=== PATIENT | male | born 1930 | race Hispanic/Latino ===

== ENCOUNTER 2017-03-06 23:37 | Emergency (ER) | payer MEDICARE ==
[2017-03-06 23:37] VITALS: BMI 26.1
[2017-03-06 23:56] VITALS: TEMP 97.8
--- NOTE | 2017-03-07 00:02 | ED PDOC ---
Arrival/HPI - General Time Seen by Provider: 03/06/17 23:55 Historian: Patient - History of Present Illness Narrative History of Present Illness (Text): 03/06/17 23:58 Hernán Levy is an 86 year old male, whose past medical history includes BPH and TIA, who presents to the ED complaining of urinary retention tonight. Patient states his Thakkar catheter is clogged and he has been unable to pass his urine. Patient denies any fever, chills, abdominal pain, nausea, vomiting, diarrhea, back pain, or any other complaints. Urologist: Dr. Baez Symptom Onset: Gradual Symptom Course: Unchanged Activities at Onset: Light Context: Home Past Medical History - Provider Review Nursing Documentation Reviewed: Yes - Infectious Disease Hx of Infectious Diseases: None - Cardiac Hx Cardiac Disorders: No - Pulmonary Hx Respiratory Disorders: No - Neurological HX Cerebrovascular Accident: Yes - HEENT Hx HEENT Disorder: No - Renal Hx Renal Disorder: No - Endocrine/Metabolic Hx Endocrine Disorders: No - Hematological/Oncological Hx Cancer: Yes (PROSTATE) - Integumentary Hx Dermatological Disorder: No - Musculoskeletal/Rheumatological Hx Falls: Yes - Gastrointestinal Hx Gastrointestinal Disorders: No - Genitourinary/Gynecological Hx Prostate Problems: Yes - Psychiatric Hx Psychophysiologic Disorder: No Hx Substance Use: No - Surgical History Other/Comment: Hernia - Anesthesia Hx Anesthesia: Yes Hx Anesthesia Reactions: No Hx Malignant Hyperthermia: No Family/Social History - Physician Review Nursing Documentation Reviewed: Yes Family/Social History: Unknown Family HX Smoking Status: Never Smoked Hx Alcohol Use: Yes (a glass of wine occasionally) Hx Substance Use: No Allergies/Home Meds Allergies/Adverse Reactions: Allergies No Known Allergies Allergy (Verified 01/27/16 11:21) Home Medications: Home Meds Medication Instructions Recorded Confirmed Finasteride [Proscar] 5 mg PO DAILY 08/14/15 08/14/15 Review of Systems - Physician Review All systems were reviewed & negative as marked: Yes - Review of Systems Constitutional: Normal. absent: Fevers Eyes: Normal ENT: Normal Respiratory: Normal. absent: SOB, Cough Cardiovascular: Normal. absent: Chest Pain Gastrointestinal: Normal. absent: Abdominal Pain, Diarrhea, Nausea, Vomiting Genitourinary Male: Urinary Output Changes (+urinary retention) Musculoskeletal: Normal. absent: Back Pain, Neck Pain Skin: Normal. absent: Rash Neurological: Normal. absent: Headache, Dizziness Endocrine: Normal Hemo/Lymphatic: Normal Psychiatric: Normal Physical Exam Vital Signs Reviewed: Yes Vital Signs Temp Pulse Resp BP Pulse Ox 03/06/17 23:55 97.8 F 66 20 170/74 H 100 Temperature: Afebrile Blood Pressure: Hypertensive Pulse: Regular Respiratory Rate: Normal Appearance: Positive for: Well-Appearing, Non-Toxic, Comfortable Pain Distress: None Mental Status: Positive for: Alert and Oriented X 3 - Systems Exam Head: Present: Atraumatic, Normocephalic Pupils: Present: PERRL Extroacular Muscles: Present: EOMI Conjunctiva: Present: Normal Mouth: Present: Moist Mucous Membranes Neck: Present: Normal Range of Motion Respiratory/Chest: Present: Clear to Auscultation, Good Air Exchange. No: Respiratory Distress, Accessory Muscle Use Cardiovascular: Present: Regular Rate and Rhythm, Normal S1, S2. No: Murmurs Abdomen: Present: Distention (Suprapubic distention), Normal Bowel Sounds. No: Tenderness, Peritoneal Signs Back: Present: Normal Inspection Upper Extremity: Present: Normal Inspection. No: Cyanosis, Edema Lower Extremity: Present: Normal Inspection. No: Edema Neurological: Present: GCS=15, CN II-XII Intact, Speech Normal Skin: Present: Warm, Dry, Normal Color. No: Rashes Psychiatric: Present: Alert, Oriented x 3, Normal Insight, Normal Concentration Medical Decision Making ED Course and Treatment: 03/06/17 23:58 Impression: 86 year old male complaining of urinary retention. Differential Diagnosis included but are not limited to: BPH vs. obstructed thakkar catheter Plan: -- Thakkar catheter -- Reassess and disposition Progress Notes: 03/07/17 01:46 Thakkar changed by RN and draining urine without difficulty. Pt tolerated procedure well and states he feels much better. Discussed plan with patient who expresses understanding. All questions answered and there is agreement with the plan to discharge home with instructions. Patient stable for discharge. Instructed to follow-up with his urologist. Return if symptoms persist or worsen. - Scribe Statement The provider has reviewed the documentation as recorded by the Scribe Tamiko Olvera All medical record entries made by the Scribe were at my direction and personally dictated by me. I have reviewed the chart and agree that the record accurately reflects my personal performance of the history, physical exam, medical decision making, and the department course for this patient. I have also personally directed, reviewed, and agree with the discharge instructions and disposition. Disposition/Present on Arrival - Present on Arrival Any Indicators Present on Arrival: No History of DVT/PE: No History of Uncontrolled Diabetes: No Urinary Catheter: No History Surgical Site Infection Following: None - Disposition Have Diagnosis and Disposition been Completed?: Yes Diagnosis: Obstructed Thakkar catheter, Encounter for Thakkar catheter replacement Disposition: HOME/ ROUTINE Disposition Time: 01:42 Patient Plan: Discharge Patient Problems: Current Active Problems Problem Status Onset Encounter for Thakkar catheter replacement Acute Obstructed Thakkar catheter Acute Condition: STABLE Discharge Instructions (ExitCare): Thakkar Catheter Placement and Care (ED) Additional Instructions: Follow up with your urologist this week Referrals: Adore Cote, [Primary Care Provider] - Follow up with primary
[2017-03-07 02:01] VITALS: BP 146/96; PULSE 60; RESP 16; O2SAT 97
[2017-03-07] MEDS ORDERED: TraMADol/Apap 37.5/325 mg Tab PO STA (03:18)
== END 2017-03-07 03:49 | disposition home or self-care (01) ==
LOC: ED 23:37
DX: T83.098A Other mechanical complication of other urinary catheter, initial encounter (principal); Y84.8 Other medical procedures as the cause of abnormal reaction of the patient, or of later complication, without mention of misadventure at the time of the procedure; Y92.89 Other specified places as the place of occurrence of the external cause

== ENCOUNTER 2018-03-07 20:06 | Inpatient (IN) | payer MEDICARE ==
[2018-03-07 20:37] VITALS: BMI 25.8
[2018-03-07 21:04] LABS: BASO # 0.03 K/mm3 (0.0-2.0); BASO % 0.4 % (0.0-3.0); EOS # 0.2 (0.0-0.7); EOS % 2.5 % (1.5-5.0); GRAN # 4.6 (1.4-6.5); GRAN % 63.6 % (50.0-68.0); HEMOGLOBIN 13.4 g/dL (14.0-18.0); LYMPH # 1.5 (1.2-3.4); LYMPH % 21.1 % (22.0-35.0); MEAN CELL VOLUME 90.2 fl (80.0-105.0); MEAN CORPUSCULAR HEMOGLOBIN 30.6 pg (25.0-35.0); MEAN CORPUSCULAR HGB CONC 33.9 g/dl (31.0-37.0); MEAN PLATELET VOLUME 10.2 fl (7.0-11.0); MONO # 0.9 (0.1-0.6); MONO % 12.4 % (1.0-6.0); RBC 4.38 10^6/uL (3.5-6.1); RED CELL DISTRIBUTION WIDTH 13.2 % (11.5-14.5); WHITE BLOOD COUNT 7.2 10^3/ul (4.5-11.0)
[2018-03-07 21:11] LABS: INR 1.01; PARTIAL THROMBOPLASTIN TIME 26.1 Seconds (25.1-36.5); PROTHROMBIN TIME 11.5 SECONDS (9.4-12.5)
[2018-03-07 21:12] LABS: ALB/GLOB RATIO 1.4 (1.1-1.8); ALBUMIN 3.7 g/dL (3.0-4.8); ALT/SGPT 26 U/L (7-56); AST/SGOT 25 U/L (17-59); BLOOD UREA NITROGEN 24 mg/dL (7-21); GFR NON-AFRICAN AMERICAN > 60
[2018-03-07 21:23] LABS: TROPONIN I < 0.01 ng/mL
--- NOTE | 2018-03-07 23:45 | ED PDOC ---
Arrival/HPI - General Chief Complaint: Syncope Time Seen by Provider: 03/07/18 20:07 Historian: Patient - History of Present Illness Narrative History of Present Illness (Text): 03/07/18 20:07 87 year old male, whose past medical history includes enlarged prostate and mini stroke, presents to the emergency department for evaluation, status post syncopal episode. Patient denies any headache, chest pain, shortness of breath , abdominal pain, or any other complaints. Time/Duration: Prior to Arrival Past Medical History - Provider Review Nursing Documentation Reviewed: Yes - Infectious Disease Hx of Infectious Diseases: None - Cardiac Hx Cardiac Disorders: Yes - Pulmonary Hx Respiratory Disorders: No - Neurological Hx Neurological Disorder: Yes HX Cerebrovascular Accident: Yes - HEENT Hx HEENT Disorder: No - Renal Hx Renal Disorder: No - Endocrine/Metabolic Hx Endocrine Disorders: No - Hematological/Oncological Hx Blood Disorders: Yes Hx Cancer: Yes (PROSTATE) - Integumentary Hx Dermatological Disorder: No - Musculoskeletal/Rheumatological Hx Musculoskeletal Disorders: Yes Hx Falls: Yes - Gastrointestinal Hx Gastrointestinal Disorders: No - Genitourinary/Gynecological Hx Genitourinary Disorders: Yes (thakkar to sgd retention) Hx Hematuria: Yes Hx Prostate Problems: Yes Other/Comment: BLADDER STONE - Psychiatric Hx Psychophysiologic Disorder: No Hx Substance Use: No - Anesthesia Hx Anesthesia: Yes Hx Anesthesia Reactions: No Hx Malignant Hyperthermia: No Family/Social History - Physician Review Nursing Documentation Reviewed: Yes Family/Social History: No Known Family HX Smoking Status: Former Smoker Hx Alcohol Use: No Hx Substance Use: No Allergies/Home Meds Allergies/Adverse Reactions: Allergies No Known Allergies Allergy (Verified 01/27/16 11:21) Home Medications: Home Meds Medication Instructions Recorded Confirmed Tamsulosin [Flomax] 0.4 mg PO DAILY 03/10/17 03/10/17 Review of Systems - Physician Review All systems were reviewed & negative as marked: Yes - Review of Systems Constitutional: Normal Eyes: Normal ENT: Normal Respiratory: Normal. absent: SOB Cardiovascular: Normal. absent: Chest Pain Gastrointestinal: Normal. absent: Abdominal Pain Genitourinary Male: Normal Musculoskeletal: Normal Skin: Normal Neurological: Normal. absent: Headache Endocrine: Normal Hemo/Lymphatic: Normal Psychiatric: Normal Physical Exam Vital Signs Reviewed: Yes Vital Signs Temp Pulse Resp BP Pulse Ox 03/07/18 23:47 98.4 F 55 L 18 135/70 97 09/11/18 22:54 54 L 18 139/70 98 03/07/18 20:31 98.4 F 56 L 18 125/65 96 Temperature: Afebrile Blood Pressure: Normal Pulse: Regular Respiratory Rate: Normal Appearance: Positive for: Well-Appearing, Non-Toxic, Comfortable Pain Distress: None Mental Status: Positive for: Alert and Oriented X 3 - Systems Exam Head: Present: Atraumatic, Normocephalic Pupils: Present: PERRL Extroacular Muscles: Present: EOMI Conjunctiva: Present: Normal Mouth: Present: Moist Mucous Membranes Neck: Present: Normal Range of Motion Respiratory/Chest: Present: Clear to Auscultation, Good Air Exchange. No: Respiratory Distress, Accessory Muscle Use Cardiovascular: Present: Regular Rate and Rhythm, Normal S1, S2. No: Murmurs Abdomen: No: Tenderness, Distention, Peritoneal Signs Back: Present: Normal Inspection Upper Extremity: Present: Normal Inspection. No: Cyanosis, Edema Lower Extremity: Present: Normal Inspection. No: Edema Neurological: Present: GCS=15, CN II-XII Intact, Speech Normal Skin: Present: Warm, Dry, Normal Color. No: Rashes Psychiatric: Present: Alert, Oriented x 3, Normal Insight, Normal Concentration Medical Decision Making ED Course and Treatment: 03/07/18 20:15 Impression: 87 year old male presents to the emergency department for evaluation status post syncopal episode. Plan: -- EKG -- Chest X-ray -- CT Head -- Urinalysis -- Reassess and disposition Prior Visits: Notes and results from previous visits were reviewed. pt request dr ji service accepts case Progress Notes: 03/08/18 00:40 - Lab Interpretations Lab Results: 03/07/18 20:57 03/07/18 20:57 Lab Results 03/07/18 20:57: Sodium 139, Potassium 4.4, Chloride 103, Carbon Dioxide 29, Anion Gap 11, BUN 24 H, Creatinine 1.1, Est GFR ( Amer) > 60, Est GFR ( Non-Af Amer) > 60, Random Glucose 117 H, Calcium 9.0, Total Bilirubin 0.3, AST 25, ALT 26, Alkaline Phosphatase 43, Troponin I < 0.01, Total Protein 6.5, Albumin 3.7, Globulin 2.7, Albumin/Globulin Ratio 1.4 03/07/18 20:57: PT 11.5, INR 1.01, APTT 26.1 03/07/18 20:57: WBC 7.2, RBC 4.38, Hgb 13.4 L, Hct 39.5 L, MCV 90.2, MCH 30.6, MCHC 33.9, RDW 13.2, Plt Count 212, MPV 10.2, Gran % 63.6, Lymph % (Auto) 21.1 L , Bell % (Auto) 12.4 H, Eos % (Auto) 2.5, Baso % (Auto) 0.4, Gran # 4.60, Lymph # (Auto) 1.5, Bell # (Auto) 0.9 H, Eos # (Auto) 0.2, Baso # (Auto) 0.03 - RAD Interpretation Radiology Orders: 03/07/18 20:35 HEAD W/O CONTRAST [CT] Stat 03/07/18 20:36 CHEST ONE VIEW [RAD] Stat - EKG Interpretation EKG Interpretation (Text): 03/08/18 00:20 nsr bradycardia rate 52 nssts changes - Medication Orders Current Medication Orders: Acetaminophen (Tylenol 325mg Tab) 650 mg PO Q4H PRN PRN Reason: Pain, Mild (1-3) Sodium Chloride (Sodium Chloride 0.9%) 1,000 mls @ 80 mls/hr IV .[id number] STA Stop: 03/08/18 12:32 - Scribe Statement The provider has reviewed the documentation as recorded by the Tiffani Dubois Provider Scribe Attestation: All medical record entries made by the Tiffani were at my direction and personally dictated by me. I have reviewed the chart and agree that the record accurately reflects my personal performance of the history, physical exam, medical decision making, and the department course for this patient. I have also personally directed, reviewed, and agree with the discharge instructions and disposition. Disposition/Present on Arrival - Present on Arrival Any Indicators Present on Arrival: No History of DVT/PE: Yes History of Uncontrolled Diabetes: Yes Urinary Catheter: Yes History of Decub. Ulcer: No History Surgical Site Infection Following: None - Disposition Have Diagnosis and Disposition been Completed?: Yes Diagnosis: Syncope Disposition: HOSPITALIZED Disposition Time: 22:00 Condition: FAIR
[2018-03-08] MEDS ORDERED: Sodium Chloride 0.9% 1,000 ML IV STA (00:03)
[2018-03-08 05:28] LABS: PH,URINE 7.5 (4.7-8.0); URINE BILIRUBIN NEGATIVE (NEGATIVE); URINE BLOOD NEGATIVE (NEGATIVE); URINE GLUCOSE (UA) NEGATIVE (NEGATIVE); URINE LEUKOCYTE ESTERASE TRACE Leu/uL (NEGATIVE); URINE PROTEIN NEGATIVE mg/dL (<30 mg/dL); URINE UROBILINOGEN 0.2 E.U./dL (<1 E.U./dL)
[2018-03-08 05:32] LABS: URINE APPEARANCE CLEAR (CLEAR); URINE COLOR YELLOW (YELLOW)
[2018-03-08 05:40] LABS: URINE BACTERIA OCC (NEG); URINE EPITHELIAL CELLS 0 - 2 /hpf (0-5); URINE RBC 0 - 2 /hpf (0-2)
--- NOTE | 2018-03-08 09:18 | CT ---
Date of service: 03/08/2018 PROCEDURE: CT HEAD WITHOUT CONTRAST. HISTORY: syncope COMPARISON: 08/14/2015 TECHNIQUE: Axial computed tomography images were obtained through the head/brain without intravenous contrast. Radiation dose: Total exam DLP = 779 mGy-cm. This CT exam was performed using one or more of the following dose reduction techniques: Automated exposure control, adjustment of the mA and/or kV according to patient size, and/or use of iterative reconstruction technique. FINDINGS: HEMORRHAGE: No intracranial hemorrhage. BRAIN: No mass effect or edema. There is a chronic appearing lacunar infarct in the right thalamus. Chronic microvascular changes are seen in the periventricular white matter. There are no acute findings VENTRICLES: Unremarkable. No hydrocephalus. CALVARIUM: Unremarkable. PARANASAL SINUSES: Unremarkable as visualized. No significant inflammatory changes. MASTOID AIR CELLS: Unremarkable as visualized. No inflammatory changes. OTHER FINDINGS: The report concurs with the preliminary [facility] report IMPRESSION: No acute findings
--- NOTE | 2018-03-08 10:44 | RAD ---
Date of service: 03/07/2018 PROCEDURE: CHEST RADIOGRAPH, 1 VIEW HISTORY: pain COMPARISON: 01/27/2016 FINDINGS: LUNGS: Clear. PLEURA: No pneumothorax or pleural fluid seen. CARDIOVASCULAR: Normal. OSSEOUS STRUCTURES: No significant abnormalities. VISUALIZED UPPER ABDOMEN: Normal. OTHER FINDINGS: None. IMPRESSION: No active disease.
--- NOTE | 2018-03-08 11:24 | CARD ---
APPROVED REPORT Date of service: 03/07/2018 EKG Measurement Heart [id number] [id number] <Conclusion> Sinus bradycardia Minimal voltage criteria for LVH, may be normal variant
--- NOTE | 2018-03-08 16:28 | US ---
PROCEDURE: Bilateral carotid artery duplex ultrasound HISTORY: Carotid stenosis syncope PHYSICIAN(S): Hernán Chun MD. TECHNIQUE: Duplex sonography and color-flow Doppler were used to evaluate the carotid bifurcations and limited segments of the vertebral arteries bilaterally. FINDINGS: There is mild smooth heterogeneous plaque noted at the carotid bifurcations bilaterally. The peak systolic velocity in the proximal right internal carotid artery is 60 cm/sec. This corresponds to a 20 to 39% proximal right ICA stenosis. Normal systolic velocities are noted in the proximal right external carotid artery. There is antegrade flow in the right vertebral artery. The peak systolic velocity in the proximal left internal carotid artery is 79 cm/sec. This corresponds to a 20 to 39% proximal left ICA stenosis. Normal systolic velocities are noted in the proximal left external carotid artery. There is antegrade flow in the left vertebral artery. IMPRESSION: 1. 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 2. Antegrade flow in both vertebral arteries.
--- NOTE | 2018-03-08 17:57 | CON ---
DATE: 03/08/2018 NEUROLOGY CONSULT CHIEF COMPLAINT: Syncope. HISTORY OF PRESENT ILLNESS: An 87-year-old man with past medical history of BPH, on Flomax; hypertension; and dyslipidemia; who presented after having a syncopal episode. The patient is unaware if he completely passed out or felt lightheaded with no spinning sensation of the room. Denied any focal paresthesias or weakness in the extremities. He had a carotid Doppler which the results are pending. CAT scan of the head showed no acute intracranial abnormality. Apparently, there is no focal weakness seen on neuro examination. The patient's primary care team has ordered MRI of the brain given his unknown syncopal event and otherwise, the sodium and potassium are unremarkable. He is following commands without any difficulty. PAST MEDICAL HISTORY: As above. ALLERGIES: NO KNOWN DRUG ALLERGIES. SOCIAL HISTORY: No illicit drug use, smoking, or EtOH abuse. REVIEW OF SYSTEMS: A 14-point review of systems is negative except as per the HPI. FAMILY HISTORY: Noncontributory. MEDICATIONS: Reviewed by nurse per reconciliation sheet. LABORATORY DATA: Sodium is 139, potassium 4.4, chloride of 103, carbon dioxide of 29. BUN of 24, creatinine 1.1. Random glucose of 117. PHYSICAL EXAMINATION: VITAL SIGNS: Temperature is 98.1, pulse rate of 50, blood pressure 160/85, respiratory rate of 18, and oxygen saturation of 98% via nasal cannula. GENERAL: The patient is sitting up in bed, in no acute distress. HEENT: Head is atraumatic and normocephalic. PERRLA. Extraocular muscles intact. NECK: Supple. No JVD. No adenopathy noted. LUNGS: Clear to auscultation. No adventitious sounds. HEART: S1 and S2. Normal rate and rhythm. No murmurs, rubs, or gallops. ABDOMEN: Soft, nontender, and nondistended. Bowel sounds are present. EXTREMITIES: No clubbing. No cyanosis. Peripheral pulses are 2+ felt bilaterally. NEUROLOGIC: The patient is alert and oriented to person, place, month, and year. Speech is fluent without any errors. Cranial nerves II through XII are intact. Motor exam: Moves all extremities equally. Toes are downgoing bilaterally. Sensory exam: Light touch, pinprick, proprioception, and vibration are intact. DTRs are 2+ throughout. Coordination of [id number] intact. No dysmetria noted. Gait is deferred for now. IMPRESSION AND PLAN: This is a syncopal event, most likely vasovagal versus bradycardic in nature since he has episodes of bradycardia, which the lowest I have seen is 50 of the heart rate. At this time, we will recommend; 1. Carotid Doppler. 2. He is undergoing an MRI of the brain to see any acute intracranial process causing syncopal event. 3. Orthostatic vital signs. 4. PT/OT eval and follow up with Cardiology. Thank you for this consultation. Carlo Mcginnis MD
--- NOTE | 2018-03-09 05:42 | CON ---
DATE: 03/08/2018 SERVICE: CARDIOLOGY REASON FOR CONSULTATION: Syncope, cardiac evaluation. BRIEF CLINICAL HISTORY: This is an 87-year-old male with a past medical history significant for BPH, history of TURP a year ago; being followed by Dr. Tran, history of a stress test a year ago. Admitted after a syncopal episode. Patient states that he was outside the home and talking to the neighbors, suddenly he feel that he going to pass out, neighbors asked what is happening, by that time the patient sit down on the staircase, but apparently he passed out and was brought here. Patient had no recollection what happened, but though he recalled that couple of years ago that the same thing happened and it looks like patient is urge to bowel movement and after that patient feels better. That whole thing happened last night also, the patient urge to bowel movement and after that patient feel comfortable. So, patient came to the emergency room. Denies any chest pain. Denies any shortness of breath, but recently feeling tiredness. PAST MEDICAL HISTORY: Significant for benign prostatic hypertrophy, status post TURP. SOCIAL HISTORY: Denies any history of smoking, but used to drink one glass of wine with the dinner. PAST SURGICAL HISTORY: Significant for hernia repair 22 years ago and history of possible TURP. According to patient, the roto-rooter in prostate was done a year ago, being followed by Dr. Tran and had a stress test prior to TURP for clearance in April. Used to follow with Dr. Tran and was told that everything is okay with the heart. CURRENT MEDICATIONS: Patient is taking Flomax 0.4 mg daily prescription item. Non-prescription item; used to take Ginkoba, multivitamin, and other herbal products. REVIEW OF SYSTEMS: As per HPI. PHYSICAL EXAMINATION: GENERAL: Height of the patient 5 feet 8 inches, weight of the patient 170 pounds, body mass index 28 kg/m2. VITAL SIGNS: Temperature afebrile, heart rate 55, blood pressure 160/85. HEENT: PERRLA. Extraocular muscles intact. NECK: Supple. No carotid bruit or thyromegaly. CHEST: Clear to auscultation. HEART: S1 and S2 regular. ABDOMEN: Soft. EXTREMITIES: Clubbing and cyanosis, negative. LABORATORY DATA: EKG shows sinus bradycardia, heart rate 52, LVA. Blood workup as follows: WBC 7.8, hemoglobin 13.1, hematocrit 39.5, platelet count 212. Chemistry shows sodium 139, potassium 4.4, chloride 103, carbon dioxide 29, anion gap of 11, BUN 24, creatinine 1.1. Troponin is 0.01. IMPRESSION: An 87-year-old male with a past medical history significant for benign prostatic hypertrophy, status post possible transurethral resection of the prostate, on Flomax and syncopal episode. Then, apparently he has 5-6 years ago similar with abdominal pain, rule out orthostatic hypotension, rule out arrhythmia, rule out structural heart disease. So far, no evidence of acute myocardial infarction. RECOMMENDATION: We will get orthostatic blood pressure. We will check echo to assess LV function. Get the lipid profile, TSH, hemoglobin A1c. We will get carotid duplex. Further recommendations depending on the hospital course. We will monitor the telemetry to rule out arrhythmia. Thank you, Dr. Gasca, for providing us the opportunity in taking care of Hernán Levy. Nilsa Arzola MD
[2018-03-09 06:31] LABS: BASO # 0.04 K/mm3 (0.0-2.0); BASO % 0.6 % (0.0-3.0); EOS # 0.3 (0.0-0.7); EOS % 4.2 % (1.5-5.0); GRAN # 3.69 (1.4-6.5); GRAN % 51.3 % (50.0-68.0); LYMPH # 2.3 (1.2-3.4); LYMPH % 31.9 % (22.0-35.0); MEAN CELL VOLUME 89.7 fl (80.0-105.0); MEAN CORPUSCULAR HGB CONC 34.6 g/dl (31.0-37.0); MEAN PLATELET VOLUME 10.3 fl (7.0-11.0); MONO # 0.9 (0.1-0.6); RBC 4.84 10^6/uL (3.5-6.1); RED CELL DISTRIBUTION WIDTH 13.2 % (11.5-14.5); WHITE BLOOD COUNT 7.2 10^3/ul (4.5-11.0)
[2018-03-09] MEDS ORDERED: Sodium Chloride 0.9% 1,000 ML IV SCH (06:45)
[2018-03-09 07:07] LABS: LDL CHOLESTEROL 125 mg/dL (0-129)
[2018-03-09 07:16] LABS: ALB/GLOB RATIO 1.3 (1.1-1.8); ALBUMIN 4.1 g/dL (3.0-4.8); ALT/SGPT 20 U/L (7-56); AST/SGOT 32 U/L (17-59); BLOOD UREA NITROGEN 21 mg/dL (7-21); CALCIUM 9.4 mg/dL (8.4-10.5); GFR NON-AFRICAN AMERICAN > 60; HDL CHOLESTEROL 44 mg/dL (29-60)
--- NOTE | 2018-03-09 08:01 | RAD ---
Date of service: 03/08/2018 PROCEDURE: Radiographs of the Left Ribs. HISTORY: Left rib pain, syncope COMPARISON: None available. TECHNIQUE: Frontal radiograph of the chest and multiple oblique radiographs of the left ribs were obtained. FINDINGS: LEFT RIBS: No fracture or focal lesion visualized. OTHER FINDINGS: None. IMPRESSION: Unremarkable radiographs of the left ribs. No left rib fracture.
--- NOTE | 2018-03-09 08:15 | CP.PCM.PN ---
Subjective - Date & Time of Evaluation Date of Evaluation: 03/09/18 Time of Evaluation: 06:45 - Subjective Subjective: Awake, alert, no distress, denies dizziness Reason for consultation and follow up: Cardiac evaluation of syncopal episode, history of BPH with TURP, orthostatic hypotension Seen and examined by me and Dr. Arzola Objective - Vital Signs/Intake and Output Vital Signs (last 24 hours): Temp Pulse Resp BP Pulse Ox 98.1 F 43 L 18 160/85 H 98 03/08/18 12:31 03/09/18 06:00 03/08/18 12:31 03/08/18 12:31 03/08/18 12:31 Intake and Output: 03/09/18 03/09/18 06:59 18:59 Intake Total 120 Output Total 1200 Balance -1080 - Medications Medications: Current Medications Acetaminophen (Tylenol 325mg Tab) 650 mg PO Q4H PRN PRN Reason: Pain, Mild (1-3) Famotidine (Pepcid) 40 mg PO HS [facility] Last Admin: 03/08/18 21:29 Dose: 40 mg Sodium Chloride (Sodium Chloride 0.9%) 1,000 mls @ 100 mls/hr IV .Q10H [facility] Tamsulosin HCl (Flomax) 0.4 mg PO DAILY [facility] Last Admin: 03/08/18 09:32 Dose: 0.4 mg - Labs Labs: 03/09/18 06:00 03/09/18 06:00 PT 11.5 SECONDS (9.4-12.5) 03/07/18 20:57 INR 1.01 03/07/18 20:57 APTT 26.1 Seconds (25.1-36.5) 03/07/18 20:57 - Constitutional Appears: No Acute Distress - Head Exam Head Exam: NORMOCEPHALIC - Eye Exam Eye Exam: Normal appearance - ENT Exam ENT Exam: Mucous Membranes Moist - Respiratory Exam Respiratory Exam: Clear to Ausculation Bilateral, NORMAL BREATHING PATTERN - Cardiovascular Exam Cardiovascular Exam: Bradycardia, +S1, +S2 - GI/Abdominal Exam GI & Abdominal Exam: Soft, Normal Bowel Sounds - Extremities Exam Extremities Exam: Normal Capillary Refill - Neurological Exam Neurological Exam: Alert, Awake, Oriented x3 - Psychiatric Exam Psychiatric exam: Normal Affect - Skin Skin Exam: Dry, Warm Assessment and Plan - Assessment and Plan (Free Text) Assessment: A 87 year old male who was brought to the ER due to syncopal episode. He claimed that he was talking to his neighbor and suddenly felt that he gonna passed out. He sat down on the staircase and passed out. No recollection of what happen after that. History of benign prostatic hypertrophy,post TURP, hernia repair. Positive for orthostatic hypotension. Will start IV fluids. Carotid dopplers unremarkable. Plan: Orthostatic hypotension Lying BP- 124/66 Sitting BP- 114/64 Standing BP - 87/57 IV fluids of NSS at 100cc/hr ECHO to evaluate LV function Denies dizziness, denies chest pain Continue current medications Continue current treatment Will follow up Plan and treatment discussed with Dr. Arzola
--- NOTE | 2018-03-09 10:08 | MRI ---
Date of service: 03/09/2018 PROCEDURE: MRI BRAIN WITHOUT CONTRAST HISTORY: syncope COMPARISON: MRI 08/11/2013 TECHNIQUE: Multiplanar, multisequence MR images of the brain were obtained without intravenous contrast enhancement. FINDINGS: HEMORRHAGE: None DWI: No evidence of an acute or early subacute infarction. BRAIN PARENCHYMA: No mass effect or edema. Chronic microvascular changes are seen in the periventricular white matter. VENTRICLES: Unremarkable. No hydrocephalus. CRANIUM: Unremarkable. ORBITS: Grossly unremarkable. PARANASAL SINUSES/MASTOIDS: Clear VASCULAR SYSTEM: Skull base flow voids intact. OTHER FINDINGS: None. IMPRESSION: No acute findings.
[2018-03-09] MEDS: Sodium Chloride 0.9% 1,000 ML IV SCH ×2 (10:55→21:50)
--- NOTE | 2018-03-09 13:13 | HP ---
Patient was seen and examined on the bedside on 03/08/2018 CHIEF COMPLAINT: Syncope. HISTORY OF PRESENT ILLNESS: Mr. Hernán Levy is an 87-year-old male with a past medical history of enlarged prostate, mini stroke, came to the Emergency Room Department for evaluation of syncopal episode. The patient denies any headache, chest pain, shortness of breath, nausea, vomiting, hematuria or hematochezia. No swelling of the legs. According to the patient, he had similar episodes many years ago. PAST MEDICAL HISTORY: Cerebrovascular accident, history of prostate cancer, history of fall, history of hematuria, nephrolithiasis. FAMILY HISTORY: Father and mother, noncontributory. HABITS: Former smoker. No drug, no ethanol. ALLERGIES: PATIENT IS NOT ALLERGIC WITH ANY MEDICATION. HOME MEDICATIONS: Flomax. REVIEW OF SYSTEMS: Patient was seen and examined on the bedside, looking comfortable. No more headache, chest pain. No nausea, vomiting, or diarrhea. No fever. No chills. No hematuria. No hematochezia. PHYSICAL EXAMINATION: VITAL SIGNS: Temperature 98.4, pulse 56, respiratory rate 18, blood pressure 125/65, pulse oximetry noted . HEENT: Head: Normocephalic and atraumatic. Eyes: PERRLA. Extraocular muscles intact. Conjunctivae clear. Nose patent. Mucous membranes moist. NECK: Supple. No carotid bruit, JVD, or thyromegaly. CHEST: Bilaterally symmetrical. HEART: S1 and S2 positive. LUNGS: Clear to auscultation. ABDOMEN: Soft. Bowel sounds present. No organomegaly. EXTREMITIES: No edema. No cyanosis. NEUROLOGIC: Patient is awake and alert. Moving all 4 extremities. No focal deficit. LABORATORY DATA: White blood cells 7.2, hemoglobin 11.6, hematocrit 32.5, platelets 212. Sodium 139, potassium 4.4. BUN 24. Creatinine 1.1. Glucose 117. ASSESSMENT AND PLAN: Mr. Hernán Levy is an 87-year-old male had anemia; hyperglycemia; came with syncopal attack; history of benign prostatic hypertrophy; getting Flomax; similar episode happened long time ago as per patient and patient got treatment from Dr. Fer Nguyen at that time; the patient has history of cerebrovascular accident; history of hematuria; history of prostate problem; bladder stones; we admitted the patient; CAT scan of the head done; bilateral carotid Doppler of the neck was done; seen by neurologist, Dr. Carlo Mcginnis; history of dyslipidemia, better; syncopal attack may be like vasovagal versus bradycardia in nature and the episode of bradycardia, which the lowest I have been seeing, in 50, the heart rate. We will follow up with carotid Doppler of the neck, MRI of the brain, orthostatic vitals. We will call cardiology consult. Repeat labs. We will follow up. Carmelina Gasca MD MTDD
--- NOTE | 2018-03-09 15:16 | CARD ---
APPROVED REPORT Date of service: 03/09/2018 EXAM: Two-dimensional and M-mode echocardiogram with Doppler and color Doppler. INDICATION Syncope 2D DIMENSIONS Left Atrium (2D)3.5 (1.6-4.0cm)IVSd1.1 (0.7-1.1cm) LVDd4.2 (3.9-5.9cm)PWd0.9 (0.7-1.1cm) LVDs2.7 (2.5-4.0cm)FS (%) 36.3 % LVEF (%)66.4 (>50%) M-Mode DIMENSIONS Aortic Root2.20 (2.2-3.7cm)Aortic Cusp Exc.0.80 (1.5-2.0cm) Aortic Valve AoV Peak Unnpbplc023.0cm/Marty Peak GR.7mmHg Mitral Valve MV E Duzadctg19.4cm/sMV A Dpmshaox52.9cm/sE/A ratio0.9 TDI E/Lateral E'0.0E/Medial E'0.0 Tricuspid Valve TR Peak [id number] [id number] Peak Gr.27mmHg [id number] LEFT VENTRICLE The left ventricle is normal size. There is normal left ventricular wall thickness. The left ventricular function is normal.EF-65% There is normal LV segmental wall motion. Transmitral Doppler flow pattern is Grade III-reversible restrictive diastolic dysfunction. No left ventricle thrombus noted on this study. There is no ventricular septal defect visualized. There is no left ventricular aneurysm. There is no mass noted in the left ventricle. RIGHT VENTRICLE The right ventricle is normal size. There is normal right ventricular wall thickness. The right ventricular systolic function is normal. ATRIA The left atrium is mildly dilated. The right atrium size is normal. The interatrial septum is intact with no evidence for an atrial septal defect. AORTIC VALVE The aortic valve is calcified and displays decreased opening. No aortic regurgitation is present. There is no aortic valvular stenosis. There is no aortic valvular vegetation. MITRAL VALVE The mitral valve is thickened but opens well. Mitral regurgitation is trace. There is no mitral valve stenosis. There is no evidence of mitral valve prolapse. TRICUSPID VALVE The tricuspid valve leaflets are thickened , but open well. There is mild to moderate tricuspid regurgitation.RVSP-37 mmof Hg. There is no tricuspid valve stenosis. There is no tricuspid valve prolapse or vegetation. PULMONIC VALVE The pulmonic valve is mildly thickened. There is mild to moderate pulmonic valvular regurgitation. There is no pulmonic valvular stenosis. GREAT VESSELS The aortic root is normal in size. The ascending aorta is normal in size. The pulmonary artery is normal. The IVC is normal in size and collapses >50% with inspiration. PERICARDIAL EFFUSION There is no pleural effusion. There is no pericardial effusion. <Conclusion> The left ventricle is normal size. The left ventricular function is normal.EF-65% Mitral regurgitation is trace. There is mild to moderate tricuspid regurgitation.RVSP-37 mmof Hg. The IVC is normal in size and collapses >50% with inspiration. There is no pericardial effusion.
[2018-03-09 17:18] VITALS: O2SAT 96
--- NOTE | 2018-03-10 00:46 | PN ---
DATE: 03/09/2018 SUBJECTIVE: Patient is an 87-year-old male. Patient was seen and examined on the bedside, looking comfortable. No fever. No chills. No headache. No dizziness. No chest pain. No palpitation. Orthostatic is positive. Dr. Arzola started NS. No fever. No chills. PHYSICAL EXAMINATION: VITAL SIGNS: Temperature 98.1, pulse 43, respiratory rate 18, blood pressure 160/85, pulse oximetry 98%. HEENT: Head: Normocephalic and atraumatic. Eyes: PERRLA. Extraocular muscles intact. Conjunctivae clear. Nose patent. Mucous membranes moist. NECK: Supple. No carotid bruit. No JVD or thyromegaly. CHEST: Bilaterally symmetrical. HEART: S1 and S2 positive. LUNGS: Clear to auscultation. ABDOMEN: Soft. Bowel sounds present. No organomegaly. EXTREMITIES: No edema. No cyanosis. NEUROLOGIC: Patient is awake and alert. Follows simple commands. MEDICATIONS: Tylenol, Pepcid, NS. LABORATORY DATA: White blood cells 7.3, hemoglobin noted , hematocrit 43.4, platelets 251. Sodium 139, potassium 4.2, BUN 21, creatinine 0.9, glucose 94. ASSESSMENT AND PLAN: Mr. Hernán Levy is an 87-year-old male came with syncopal episode. Patient was actually talking to the neighbor, suddenly felt that he is going to pass out, he sat down on the staircase and passed out. No recollection of what happened after that. Patient does not remember anything. History of prostatic hypertrophy, post transurethral resection of the prostate; hernia repair; orthostatic hypotension is positive. Started intravenous fluid. Carotid Doppler is done. MRI of the head is done also. Seen by the health evaluator. Lying blood pressure was 124/66, sitting 114/64, standing 87/56. Patient is getting intravenous fluid 100 mL per hour. Echo to evaluate the left ventricular function. At the time of examination, no dizziness, no chest pain. Plan is to continue present treatment. According to Dr. Blair Davis, MRI of the brain showed no acute finding. Echocardiography read by Dr. Nilsa Arzola appreciated. Rib series was done. CAT scan of the head was done also. Unremarkable radiographs of the left rib. No left rib fracture. No musculoskeletal pressure. Discussion done with the patient and patient's nurse. Gastrointestinal and deep venous thrombosis prophylaxes. Continue intravenous fluid 24 hours. We will do evaluation of orthostatic tomorrow, then we will make discharge planning. Physical therapy ordered. We will follow up. Carmelina Gasca MD MTDD
--- NOTE | 2018-03-10 07:41 | CP.PCM.PN ---
Subjective - Date & Time of Evaluation Date of Evaluation: 03/10/18 Time of Evaluation: 06:30 - Subjective Subjective: Sitting side of bed, Awake, alert, no distress, denies dizziness Reason for consultation and follow up: Cardiac evaluation of syncopal episode, history of BPH with TURP, orthostatic hypotension Seen and examined by me and Dr. Arzola Objective - Vital Signs/Intake and Output Vital Signs (last 24 hours): Temp Pulse Resp BP Pulse Ox 98.4 F 48 L 18 115/70 96 03/09/18 17:18 03/10/18 02:00 03/09/18 17:18 03/09/18 17:18 03/09/18 17:18 Intake and Output: 03/10/18 03/10/18 06:59 18:59 Intake Total 1120 Output Total 1200 Balance -80 - Medications Medications: Current Medications Acetaminophen (Tylenol 325mg Tab) 650 mg PO Q4H PRN PRN Reason: Pain, Mild (1-3) Famotidine (Pepcid) 40 mg PO HS [facility] Last Admin: 03/09/18 21:48 Dose: 40 mg Sodium Chloride (Sodium Chloride 0.9%) 1,000 mls @ 100 mls/hr IV .Q10H [facility] Last Admin: 03/09/18 21:50 Dose: Not Given Tamsulosin HCl (Flomax) 0.4 mg PO DAILY [facility] Last Admin: 03/09/18 10:48 Dose: 0.4 mg - Labs Labs: PT 11.5 SECONDS (9.4-12.5) 03/07/18 20:57 INR 1.01 03/07/18 20:57 APTT 26.1 Seconds (25.1-36.5) 03/07/18 20:57 - Constitutional Appears: No Acute Distress - Head Exam Head Exam: NORMOCEPHALIC - Eye Exam Eye Exam: Normal appearance - ENT Exam ENT Exam: Mucous Membranes Moist - Respiratory Exam Respiratory Exam: Decreased Breath Sounds, Clear to Ausculation Bilateral, NORMAL BREATHING PATTERN - Cardiovascular Exam Cardiovascular Exam: Bradycardia, +S1, +S2 - GI/Abdominal Exam GI & Abdominal Exam: Soft, Normal Bowel Sounds - Extremities Exam Extremities Exam: Normal Capillary Refill - Neurological Exam Neurological Exam: Alert, Awake, Oriented x3 - Psychiatric Exam Psychiatric exam: Normal Affect - Skin Skin Exam: Dry, Warm Assessment and Plan - Assessment and Plan (Free Text) Assessment: A 87 year old male who was brought to the ER due to syncopal episode. He claimed that he was talking to his neighbor and suddenly felt that he gonna passed out. He sat down on the staircase and passed out. No recollection of what happen after that. History of benign prostatic hypertrophy,post TURP, hernia repair. Positive for orthostatic hypotension. Will start IV fluids. Carotid dopplers unremarkable. Plan: Echo done-normal LV size, LVEF 65% Trace MR, mild to moderate TR, RVSP 37 mmHg On IV fluids for orthostatic hypotension Blood pressure improved today Lying BP- 118/57 Sitting BP- 114/64 Standing BP - 108/52 Feels good today,sitting side of bed Will discontinue IV fluids Denies dizziness, denies chest pain Continue current medications Continue current treatment May discharge from cardiac standpoint Will follow up Plan and treatment discussed with Dr. Arzola
[2018-03-10 08:07] VITALS: BP 121/63; RESP 20; TEMP 97.9
[2018-03-10 12:56] VITALS: PULSE 50
== END 2018-03-10 13:26 | disposition home or self-care (01) | DRG 312 ==
LOC: ED 20:06 → ERH 23:07 → 3RNO 03-08 10:44 → OBSVTOIN 03-09 22:59
PROVIDERS: ADMIT Internal Medicine; ATTEND Internal Medicine
DX: I95.1 Orthostatic hypotension (principal); N40.0 Benign prostatic hyperplasia without lower urinary tract symptoms; I10 Essential (primary) hypertension; E78.5 Hyperlipidemia, unspecified; Z86.73 Personal history of transient ischemic attack (TIA), and cerebral infarction without residual deficits; Z85.46 Personal history of malignant neoplasm of prostate; Z90.79 Acquired absence of other genital organ(s); Z87.891 Personal history of nicotine dependence